=== PATIENT | female | born 1955 | race African-American/Black ===

== ENCOUNTER → 2019-03-01 | Outpatient (CLI) | payer MEDICARE, OTHER ==
[~2019-03-01] MED LIST: ASPI-482 PO; GLIP5TAB10 PO; OLME40TA12 PO
--- NOTE | 2019-03-01 16:15 | KCIC ---
History: Screening. Bilateral digital CC and MLO views were obtained with mammography and tomosynthesis. Computer aided detection was utilized with iCAD Second Look 7.2-H. Previous: December 14, 2017 and priors. There are scattered fibroglandular densities (Level 2 density).There are no spiculated masses, suspicious microcalcifications or areas of architectural distortion. At the left upper outer breast 10 cm from the nipple on CC tomosynthesis image 44 and MLO tomosynthesis image 14 there is a oval partially circumscribed subcentimeter low-density mass not apparent on the 2-D reconstructed mammographic images and not apparent on prior studies, perhaps a lymph node, further assessment is required. IMPRESSION: Subcentimeter left upper outer breast mass as described above. Further assessment with left breast sonography is advised. BI-RADS Category 0: Incomplete examination. If your mammogram demonstrates that you have dense breast tissue, which could hide abnormalities, and if you have other risk factors for breast cancer that have been identified, you might benefit from supplemental screening tests that may be suggested by your ordering physician. Dense breast tissue, in and of itself, is a relatively common condition. This information is not provided to cause undue concern, but rather to raise your awareness and to promote discussion with your physician regarding the presence of other risk factors, in addition to dense breast tissue. A report of your mammography results will be sent to you and your physician. You should contact your physician if you have any questions or concerns regarding this report. A mammogram does not have 100% sensitivity and therefore a negative imaging study should not delay further work up of a suspicious abnormality. "Our facility is accredited by the [employer] Mammography Program." Electronically signed by: Desmond Carr MD (03/01/2019 4:12 PM) [id number]
== END | disposition home or self-care (01) ==
LOC: KCIC MAMMO 13:39
PROVIDERS: ATTEND Physician Assistant Surgical
DX: Z12.31 Encounter for screening mammogram for malignant neoplasm of breast (principal); N63.21 Unspecified lump in the left breast, upper outer quadrant
CPT/HCPCS: 77063; 77067

== ENCOUNTER → 2019-03-04 | Outpatient (CLI) | payer MEDICARE, OTHER ==
--- NOTE | 2019-03-04 11:28 | KCIC ---
BREAST LEFT Clinical Indication: Abnormal screening mammogram. Comparison: Bilateral mammogram 03/01/2019 and 12/14/2017. TECHNIQUE: Real-time ultrasound imaging of the left breast is performed. Findings: Accounting for the mass on mammogram in the upper outer left breast, there is a hypoechoic mass at the 2:00 position 10 cm from the nipple that measures 6 x 3 x 4 mm. Margins are well-circumscribed, the mass is parallel, color Doppler interrogation is negative, and there are no posterior acoustic features. There is suggestion of a thin echogenic hilum, for example image 5. Mass is probably an intramammary lymph node. There are no abnormal axillary lymph nodes. IMPRESSION: 1. Probable 5 mm intramammary lymph node at the 2:00 position 10 cm from the nipple accounts for the mass on mammogram. Recommend six-month follow-up left breast ultrasound. 2. BI-RADS Category 3, probably benign. Electronically signed by: Wade Lafleur MD (03/04/2019 11:25 AM) [id number]
== END | disposition home or self-care (01) ==
LOC: KCIC US 10:35
PROVIDERS: ATTEND Physician Assistant Surgical
DX: R92.8 Other abnormal and inconclusive findings on diagnostic imaging of breast (principal)
CPT/HCPCS: 76641